=== PATIENT | female | born 1960 ===

== ENCOUNTER 2018-11-07 08:12 | Emergency (ER) | payer OTHER ==
[2018-11-07 08:14] VITALS: BMI 31.4
[2018-11-07 08:15] VITALS: PULSE 76; RESP 18; TEMP 97.6; O2SAT 99
--- NOTE | 2018-11-07 08:29 | ED PDOC ---
HPI: General Adult Time Seen by Provider: 11/07/18 08:18 Chief Complaint (Provider): Dizziness, weakness History Per: Patient History/Exam Limitations: no limitations Onset/Duration Of Symptoms: Hrs Have you had recent travel within the past 21 days to any of the following countries: [place], [place], [place] or [place]?: No Current Symptoms Are (Timing): Still Present Additional Complaint(s): 58yo female, otherwise well, comes to ER stating she feels weak and "dizzy" since this morning. She reports feeling unsteady while walking but denies any room spinning sensations. She states the symptoms resolve if she is sitting still or laying down. Patient reports her blood pressure is usually low around 100-120 systolic but today noted it to be approximately 120 systolic. She otherwise denies any headache, weakness, numbness, chest pain, palpitations, or headache. She also denies any fever or chills and has not taken any medications for her symptoms. PMD: Zach Springer Past Medical History Reviewed: Historical Data, Nursing Documentation, Vital Signs Vital Signs: Last Vital Signs Temp 97.6 F 11/07/18 08:14 Pulse 76 11/07/18 08:14 Resp 18 11/07/18 08:14 BP 152/81 H 11/07/18 08:14 Pulse Ox 99 11/07/18 08:14 - Medical History PMH: Asthma, COPD, Gall Bladder Disease, Kidney Stones Denies: HIV - Surgical History Surgical History: Cholecystectomy - Family History Family History: States: Unknown Family Hx - Home Medications Home Medications: Ambulatory Orders Medication Instructions Recorded Ciprofloxacin HCl [Cipro] 500 mg PO BID #0 tab 07/04/14 Fluticasone Propionate [Flonase] 1 spr DAILY 07/04/14 Mometasone/Formoterol [Dulera 200 1 mehul IH Q12 07/04/14 Mcg/5 Mcg Inhaler] Multivitamin and Iron [Daily 1 tab PO DAILY 07/04/14 Multi-Vitamins W/Iron] [id number] Ethyl Esters [Lovaza] 2 gm PO DAILY 07/04/14 Tamsulosin [Flomax] 0.4 mg PO DAILY #0 cap 07/04/14 oxyCODONE/Acetaminophen [Percocet 2 tab PO Q4 PRN #0 tab 07/04/14 5/325 mg Tab] Meclizine [Meclizine*] 25 mg PO Q8 #15 tab 11/07/18 - Allergies Allergies/Adverse Reactions: Allergies Allergy/AdvReac Type Severity Reaction Status Date / Time No Known Allergies Allergy Verified 11/07/18 08:55 Review of Systems ROS Statement: Except As Marked, All Systems Reviewed And Found Negative Constitutional: Positive for: Weakness. Negative for: Fever, Chills Cardiovascular: Negative for: Chest Pain, Palpitations Respiratory: Negative for: Shortness of Breath Neurological: Positive for: Dizziness. Negative for: Headache Physical Exam - Reviewed Nursing Documentation Reviewed: Yes Vital Signs Reviewed: Yes - Physical Exam Appears: Positive for: Non-toxic Head Exam: Positive for: ATRAUMATIC, NORMAL INSPECTION, NORMOCEPHALIC Skin: Positive for: Normal Color Eye Exam: Positive for: EOMI, PERRL Neck: Positive for: Normal, Supple Cardiovascular/Chest: Positive for: Regular Rate, Rhythm. Negative for: Murmur, Tachycardia Respiratory: Positive for: Normal Breath Sounds. Negative for: Respiratory Distress Gastrointestinal/Abdominal: Positive for: Soft Back: Positive for: Normal Inspection Extremity: Positive for: Normal ROM. Negative for: Deformity Neurological/Psych: Positive for: Awake, Alert, Symmetric/Intact Strength (5/5 tank cleaner strength), Oriented (x 3). Negative for: Motor/Sensory Deficits - Laboratory Results Result Diagrams: 11/07/18 08:51 11/07/18 08:51 - ECG O2 Sat by Pulse Oximetry: 99 (RA) Pulse Ox Interpretation: Normal Medical Decision Making Medical Decision Makinyo female with weakness, "dizziness" Plan: -- EKG -- Labs 09 EKG: NSR @ 71, no acute ST changes Labs reviewed, no clinically significant abnormalities noted. Scribe Attestation: Documented by Patsy Guadarrama, acting as a scribe for Chase Painter MD Provider Scribe Attestation: All medical record entries made by the Scribbrianna were at my direction and personally dictated by me. I have reviewed the chart and agree that the record accurately reflects my personal performance of the history, physical exam, medical decision making, and the department course for this patient. I have also personally directed, reviewed, and agree with the discharge instructions and disposition. Disposition - Clinical Impression Clinical Impression: Dizziness - Patient ED Disposition Is Patient to be Admitted: No Counseled Patient/Family Regarding: Studies Performed, Diagnosis, Need For Followup, Rx Given - Disposition Disposition: Routine/Home Disposition Time: 09:40 Condition: FAIR Prescriptions: Meclizine [Meclizine*] 25 mg PO Q8 #15 tab Instructions: Dizziness, Nonvertigo, (DC)
[2018-11-07 09:04] LABS: BASO % 0.5 % (0.0-2.0); EOS # 0.2 K/uL (0.0-0.7); EOS % 3.7 % (0.0-4.0); HEMOGLOBIN 12.9 g/dL (12.0-16.0); LYMPH # 1.8 K/uL (1.0-4.3); LYMPH % 27.3 % (20.0-40.0); MEAN CELL VOLUME 83.7 fl (81.0-99.0); MEAN CORPUSCULAR HEMOGLOBIN 28.4 pg (27.0-31.0); MEAN CORPUSCULAR HGB CONC 33.9 g/dL (33.0-37.0); MEAN PLATELET VOLUME 8.3 fl (7.2-11.7); MONO # 0.5 K/uL (0.0-0.8); MONO % 7.1 % (0.0-10.0); NEUT % 61.4 % (50.0-75.0); NRBC % 0.1 % (0.0-0.0); RBC 4.53 Mil/uL (3.80-5.20); RED CELL DISTRIBUTION WIDTH 13.8 % (11.5-14.5); WHITE BLOOD COUNT 6.5 K/uL (4.8-10.8)
[2018-11-07 09:09] LABS: ALB/GLOB RATIO 1.3 (1.0-2.1); ALBUMIN 4.3 g/dL (3.5-5.0); ALT/SGPT 41 U/L (9-52); AST/SGOT 24 U/L (14-36); BLOOD UREA NITROGEN 12 mg/dl (7-17); CALCIUM 8.6 mg/dL (8.4-10.2); GFR NON-AFRICAN AMERICAN > 60
[2018-11-07 09:37] VITALS: BP 143/78
--- NOTE | 2018-11-07 20:23 | CARD ---
APPROVED REPORT Date of service: 11/07/2018 EKG Measurement Heart [id number] <Conclusion> Normal sinus rhythm Normal ECG
== END 2018-11-07 09:50 | disposition home or self-care (01) ==
LOC: H.ER 08:12
DX: R42 Dizziness and giddiness (principal)